=== PATIENT | female | born 1995 | race Caucasian/White ===

== ENCOUNTER → 2017-06-01 | Outpatient (CLI) | payer SELFPAY ==
--- NOTE | 2017-06-01 10:27 | RAD ---
Right shoulder, 3 views, 06/01/2017: History: Lifting injury, shoulder pain No fracture or dislocation is identified. No significant arthritic change is seen. IMPRESSION: No significant right shoulder abnormality is detected.
== END | disposition home or self-care (01) ==
LOC: DXRADRC 10:07
PROVIDERS: ATTEND Nurse Practitioner Family
DX: M25.511 Pain in right shoulder (principal)
CPT/HCPCS: 73030

== ENCOUNTER → 2020-04-01 | Outpatient (CLI) | payer BC, OTHER ==
--- NOTE | 2020-04-01 18:09 | RAD ---
PROCEDURE: KNEE RIGHT 3V CLINICAL INDICATION / HISTORY: Reason: RIGHT KNEE PAIN / Spl. Instructions: / History: . TECHNIQUE: AP, lateral, and oblique views of the right knee. COMPARISON: None FINDINGS: The osseous structures are intact. The articular surfaces are smooth. The joint space is maintained. No intra-articular loose bodies. The alignment is within normal limits. The soft tissues are unremarkable. No obvious joint effusion. No radio-opaque foreign bodies are identified. IMPRESSION: Normal right knee x-ray series. Electronically signed by: Jian Karimi MD (04/01/2020 6:07 PM) [id number]
== END | disposition home or self-care (01) ==
LOC: DXRAD 15:34
PROVIDERS: ATTEND Family Medicine
DX: M25.561 Pain in right knee (principal)
CPT/HCPCS: 73562